=== PATIENT | male | born 1945 | race Caucasian/White ===

== ENCOUNTER 2016-03-24 08:13 | Outpatient (CLI) | payer MEDICARE, BC | END 2016-03-24 08:14 | disposition home or self-care (01) | DX: I50.9 Heart failure, unspecified (principal); I08.3 Combined rheumatic disorders of mitral, aortic and tricuspid valves ==

== ENCOUNTER 2016-04-07 10:52 | Outpatient (CLI) | payer MEDICARE, BC | END 2016-04-07 10:53 | disposition home or self-care (01) | DX: N18.6 End stage renal disease (principal); I51.7 Cardiomegaly ==

== ENCOUNTER 2017-01-18 16:51 | Outpatient (CLI) | payer MEDICARE, BC ==
--- NOTE | 2017-01-19 09:53 | Ultrasound Report ---
DUPLEX ULTRASOUND BILATERAL LOWER EXTREMITY ARTERIES: 01/18/2017 COMPARISON: None. INDICATION: Peripheral vascular disease. TECHNIQUE: Sonographic evaluation of the lower extremity arteries was performed. FINDINGS: No evidence of clinically significant stenosis throughout the exam. The following peak systolic velocities are measured in centimeters/second. RIGHT: UNDER WATER ASSISTANT: 112 SFA proximal: 77 SFA mid: 75 SFA distal: 82 PFA: 83 POP: 61 ANGELA: 64 HOTEL ATTENDANT: 49 Peroneal: 87 LEFT: UNDER WATER ASSISTANT: 114 SFA proximal: 56 SFA mid: 67 SFA distal: 83 PFA: 88 POP: 47 ANGELA: 43 HOTEL ATTENDANT: 88 Peroneal: 35 IMPRESSION: NO EVIDENCE OF CLINICALLY SIGNIFICANT STENOSIS. JOB #: [id number] EXT JOB #: [id number] [facility]
== END 2017-01-18 16:52 | disposition home or self-care (01) ==
LOC: DI 16:51
PROVIDERS: ATTEND Family Medicine
DX: I73.9 Peripheral vascular disease, unspecified (principal)
CPT/HCPCS: 93925

== ENCOUNTER 2017-01-23 16:24 | Outpatient (CLI) | payer MEDICARE, BC | END 2017-01-23 16:25 | disposition short-term general hospital (02) | LOC: EMS 16:24 | PROVIDERS: ATTEND Surgery | DX: R06.00 Dyspnea, unspecified (principal) | CPT/HCPCS: A0425; A0427 ==

== ENCOUNTER 2017-01-26 14:04 | Outpatient (CLI) | payer MEDICARE, BC | END 2017-01-26 14:05 | disposition critical access hospital (66) | LOC: EMS 14:04 | PROVIDERS: ATTEND Surgery | DX: R09.89 Other specified symptoms and signs involving the circulatory and respiratory systems (principal) | CPT/HCPCS: A0425; A0429 ==

== ENCOUNTER 2017-01-26 14:24 | Emergency (ER) | payer MEDICARE, BC ==
--- NOTE | 2017-01-26 15:26 | ED Physician Documentation ---
History of Present Illness - Stated complaint Stated Complaint: SOA - Chief complaint Chief Complaint: General - History obtained from History obtained from: Patient, Family (spouse) - History of Present Illness Timing: Today - Additonal information Additional information: The patient is a 71-year-old male with history of chronic renal failure, on dialysis, who presents after undergoing dialysis today. He was feeling dizzy, and was found to be hypotensive with a systolic pressure of 80 systolic 3 and half hours into his dialysis treatment, which was stopped 20 minutes short of completion. Dialysis staff also reports that his pulse oximetry was intermittently low, although the patient denies any associated shortness of breath. He denies chest pain, abdominal pain, nausea or vomiting. He denies cough or fever. 4 days ago he was hospitalized at [facility] in [place] with congestive heart failure and underwent aggressive dialysis for 2 days. He was given rest yesterday and discharged from the hospital, before resuming his routine dialysis today. Further past medical history is significant for cardiac arrest while undergoing dialysis 6 weeks ago. He subsequently underwent cardiac stent placement, and was started on metoprolol following that procedure. Review of Systems Constitutional: reports: Fatigue, Other (lightheadedness). denies: Fever Ears: denies: Tinnitus/ringing Nose: denies: Congestion Throat: denies: Sore throat Cardiac: denies: Chest pain / pressure, Palpitations Respiratory: denies: Dyspnea, Cough GI: denies: Abdominal Pain, Nausea, Vomiting : reports: Other (Chronic renal failure, on dialysis.). denies: Dysuria Skin: denies: Rash Musculoskeletal: denies: Back pain, Extremity pain Neurologic: denies: Focal weakness, Numbness, Headache PD PAST MEDICAL HISTORY - Past Medical History Past Medical History: Yes Cardiovascular: Congestive heart failure, Hypertension, Atrial fibrillation Respiratory: Pneumonia, Shortness of breath, Sleep apnea, CPAP use Endocrine/Autoimmune: HyPOthyroidism GI: None : Other HEENT: None Psych: None Musculoskeletal: Fatigue, Chronic back pain Derm: Other Other Past Medical History: Renal failure-Dialysis - Past Surgical History Past Surgical History: Yes HEENT: Cataracts - Present Medications Home Medications: Ambulatory Orders Medication Instructions Recorded Confirmed Levothyroxine [Synthroid] 125 meq PO DAILY 08/24/14 01/26/17 Warfarin [Coumadin] 2.5 mg PO DAILY 08/24/14 01/26/17 [id number] CD [Cardizem Cd] 180 mg PO DAILY 08/24/14 01/26/17 Lisinopril 5 mg PO 01/26/17 - Allergies Allergies/Adverse Reactions: Allergies Allergy/AdvReac Type Severity Reaction Status Date / Time latex Allergy Rash Verified 01/26/17 14:34 - Social History Does the pt smoke?: No Smoking Status: Never smoker Does the pt drink ETOH?: No Does the pt have substance abuse?: No - Immunizations Immunizations are current?: Yes - POLST Patient has POLST: Yes PD ED PE NORMAL - Vitals Vital signs reviewed: Yes (normal, with a blood pressure of 118/54.) - General General: Alert and oriented X 3, Well developed/nourished - HEENT HEENT: Atraumatic, Pharynx benign - Neck Neck: No adenopathy, No JVD - Cardiac Cardiac: RRR, Other (2/6 systolic murmur.) - Respiratory Respiratory: No respiratory distress, Clear bilaterally - Abdomen Abdomen: Soft, Non tender, Other (Rotund abdomen.) - Back Back: No CVA TTP - Derm Derm: No rash - Extremities Extremities: No calf tenderness / cord, Other (Brawny discoloration of his lower extremities bilaterally. Minimal pedal edema currently.) - Neuro Neuro: Alert and oriented X 3, No motor deficit, Normal speech Results - Vitals Vitals: Oxygen O2 Source Room air - EKG (time done) 14:35 Rate: Rate (enter#) (88) Rhythm: NSR Oakes: LAD Intervals: LBBB Compare to prior EKG: Changed from prior EKG (Compared to prior tracing of 2014, a-fib is no longer present. QRS morphology is unchanged.) Computer interpretation: Agree with computer PD MEDICAL DECISION MAKING - ED course Complexity details: reviewed old records, reviewed results, re-evaluated patient , considered differential, d/w patient, d/w family ED course: The patient's presentation is significant for history of hypotension occurring during renal dialysis. He is not hypotensive while in the emergency department , and is asymptomatic. His electrocardiogram reveals a left bundle branch block , which reveals no change in the QRS morphology when compared to prior electrocardiograms. He was observed in the emergency department for over one hour and remained asymptomatic. Prior to discharge he demonstrates ability to ambulate without lightheadedness. I discussed with him and his potentially worrisome signs or symptoms that should prompt reevaluation in the emergency department. Departure - Departure Disposition: 01 Home, Self Care Clinical Impression: Encounter for medical screening examination, History of hypotension, Chronic kidney disease with end stage renal failure on dialysis Condition: Stable Instructions: ED Hypotension All Causes Follow-Up: Domenic Dumont DO [Provider Admit Priv/Credential] - Comments: Continue medications as previously prescribed. Follow-up with primary physician as planned. Return to the emergency department if you develop increasing lightheadedness, dizziness, shortness of breath, chest pain, or otherwise worsening symptoms. Discharge Date/Time: 01/26/17 17:30
[2017-01-26 17:22] VITALS: BP 131/58
== END 2017-01-26 17:30 | disposition home or self-care (01) ==
LOC: EDUNIT# → ED 14:24
DX: I13.2 Hypertensive heart and chronic kidney disease with heart failure and with stage 5 chronic kidney disease, or end stage renal disease (principal); N18.6 End stage renal disease; I50.9 Heart failure, unspecified; Z99.2 Dependence on renal dialysis; I95.9 Hypotension, unspecified; I44.7 Left bundle-branch block, unspecified; R94.31 Abnormal electrocardiogram [ECG] [EKG]; I48.91 Unspecified atrial fibrillation; Z79.01 Long term (current) use of anticoagulants; G47.30 Sleep apnea, unspecified; E03.9 Hypothyroidism, unspecified
CPT/HCPCS: 80053; 83690; 84484; 85025; 93005; 99283; 99284

== ENCOUNTER 2017-01-31 03:17 | Outpatient (CLI) | payer MEDICARE, BC | END 2017-01-31 03:18 | disposition critical access hospital (66) | LOC: EMS 03:17 | PROVIDERS: ATTEND Surgery | DX: R06.02 Shortness of breath (principal); Z51.5 Encounter for palliative care; I50.9 Heart failure, unspecified; R09.02 Hypoxemia; N18.6 End stage renal disease | CPT/HCPCS: A0425; A0428; A0429 ==

== ENCOUNTER 2017-01-31 03:31 | Inpatient (IN) | payer MEDICARE, BC ==
--- NOTE | 2017-01-31 04:30 | XRAY Preliminary Report ---
Exam: XR CHEST 1 VIEW IMPRESSION: 1. Cardiomegaly with likely pulmonary edema or volume overload. Infiltrate not entirely excluded. [facility] SITE ID: [id number]
--- NOTE | 2017-01-31 04:32 | XRAY Report ---
EXAM: CHEST RADIOGRAPHY EXAM DATE: 01/31/2017 04:16 AM. CLINICAL HISTORY: Shortness of breath. COMPARISON: 04/07/2016. TECHNIQUE: 1 view. FINDINGS: Lungs/Pleura: Worsening bilateral pulmonary opacities likely representing pulmonary edema or volume o verload. Infiltrate not entirely excluded. No large pleural effusion seen. No pneumothorax. Mediastinum: Mild to moderate cardiomegaly. Aortic atherosclerosis. Other: None. IMPRESSION: 1. Cardiomegaly with likely pulmonary edema or volume overload. Infiltrate not entirely excluded. [facility] Referring Provider Line: [phone] SITE ID: [id number]
[2017-01-31] MEDS ORDERED: MORPHINE 2 MG/ML SYRINGE ONE (04:42)
[2017-01-31] MEDS ORDERED: LORazepam 2 MG/ML VIAL ONE (04:42)
[2017-01-31] MEDS ORDERED: LORazepam 2 MG/ML VIAL IM STA (04:44)
[2017-01-31] MEDS ORDERED: MORPHINE 10 MG/ML VIAL IM STA (04:44)
--- NOTE | 2017-01-31 04:46 | ED Physician Documentation ---
PD HPI DYSPNEA - Stated complaint Stated Complaint: SOA - Chief complaint Chief Complaint: Resp - History obtained from History obtained from: Patient, Family, EMS - History of Present Illness Timing - onset: Yesterday Timing - onset during: Rest Timing - duration: Hours Timing - details: Gradual onset, Still present Inciting event(s): Other (ESRD on dialysis with recent WI during dialysis with cardiac arrest) Improved by: O2, Rest, Sitting up Worsened by: Exertion, Laying flat Similar symptoms before: Diagnosis (pulmonary edema) Recently seen: Admitted - Additional information Additional information: 71-year-old male with a history of hypertension and end-stage renal disease on dialysis had cardiac arrest during dialysis in November. He had WI and 3 stents were placed. He has developed some congestive heart failure and one week ago today he was admitted into [facility] in [place] for complete congestive heart failure and he had dialysis 2 days in a row of a large volume of fluid taken off. He has gone on to have dialysis regularly on Monday and Monday. Yesterday he began to become withdrawn and his was concerned he may be getting sick again and through the evening he became more short of breath when medics arrived they found him to be hypoxic with oxygen saturation in the 80s and this easily corrected with nasal cannula oxygen. He was transported the hospital here with the thought that maybe he would be able to get oxygen for use at home. He is ready to have a conversation about hospice with Dr. Penn this morning. Review of Systems Constitutional: denies: Fever Eyes: denies: Decreased vision Ears: denies: Ear pain Nose: denies: Congestion Throat: denies: Sore throat Cardiac: denies: Chest pain / pressure, Palpitations Respiratory: reports: Dyspnea. denies: Cough GI: denies: Nausea, Vomiting : denies: Dysuria Skin: denies: Rash Musculoskeletal: denies: Back pain, Extremity pain Neurologic: reports: Generalized weakness, Altered mental status. denies: Numbness, Head injury PD PAST MEDICAL HISTORY - Past Medical History Past Medical History: Yes Cardiovascular: Congestive heart failure, Hypertension, Atrial fibrillation Respiratory: Pneumonia, Shortness of breath, Sleep apnea, CPAP use Neuro: None Endocrine/Autoimmune: HyPOthyroidism GI: None : Other HEENT: None Psych: None Musculoskeletal: Fatigue, Chronic back pain Derm: Other - Past Surgical History Past Surgical History: Yes HEENT: Cataracts - Present Medications Home Medications: Ambulatory Orders Medication Instructions Recorded Confirmed Levothyroxine [Synthroid] 125 meq PO DAILY 08/24/14 01/31/17 Warfarin [Coumadin] 2.5 mg PO DAILY 08/24/14 01/31/17 [id number] CD [Cardizem Cd] 180 mg PO DAILY 08/24/14 01/31/17 Lisinopril 5 mg PO DAILY 01/26/17 01/31/17 - Allergies Allergies/Adverse Reactions: Allergies Allergy/AdvReac Type Severity Reaction Status Date / Time latex Allergy Rash Verified 01/26/17 14:34 - Social History Does the pt smoke?: No Smoking Status: Never smoker Does the pt drink ETOH?: No Does the pt have substance abuse?: No - Immunizations Immunizations are current?: Yes - POLST Patient has POLST: Yes PD ED PE NORMAL - Vitals Vital signs reviewed: Yes (hypertensive and tachycardic ) - General General: Well developed/nourished - HEENT HEENT: Atraumatic, PERRL, EOMI - Neck Neck: Supple, no meningeal sign - Cardiac Cardiac: Other (tachy with 2/6 holosystolic murmer at LSB) - Respiratory Respiratory: Other (The patient is tachypneic and breath sounds are course) - Abdomen Abdomen: Soft, Non tender - Back Back: No CVA TTP, No spinal TTP - Derm Derm: Normal color, Warm and dry, No rash - Extremities Extremities: Other (bruany skin color to legs without pitting ) - Neuro Neuro: No motor deficit, No sensory deficit Eye Opening: Spontaneous Motor: Obeys Commands Verbal: Oriented GCS Score: 15 - Psych Psych: Normal mood, Normal affect Results - Vitals Vitals: Vital Signs - 24 hr 01/31/17 01/31/17 01/31/17 03:37 04:30 04:40 Temperature 36.0 C L Heart Rate 110 H 133 H 123 H Respiratory 28 H 36 H 30 H Rate Blood Pressure 106/44 L 174/105 H O2 Saturation 99 90 L 92 01/31/17 01/31/17 05:00 05:10 Temperature Heart Rate 109 H 115 H Respiratory 24 Rate Blood Pressure 146/89 H O2 Saturation 99 Oxygen O2 Source BIPAP Oxygen Flow Rate 15 - EKG (time done) 0341 Rate: Rate (enter#) (115) Rhythm: Sinus tachycardia Intervals: LBBB Compare to prior EKG: Changed from prior EKG (SPT 01-26-17 The rate has increased and LBBB has occurred. ) Computer interpretation: Agree with computer - Rads (name of study) 1 view chest Radiology: Prelim report reviewed (Impression: 1. Cardiomegaly with likely pulmonary edema or volume overload. Infiltrate not entirely excluded.), EMP read indepedently, See rad report Procedures - IVC sono (time) 0350 Bedside IVC sono: IVC measures (cm) (0.9), IVC collapsed c insp (cm) (complete) , Low CVP PD MEDICAL DECISION MAKING - ED course Complexity details: reviewed old records, reviewed results, re-evaluated patient , considered differential, d/w patient, d/w family, d/w clothing consultant ED course: 71-year-old male with history of hypertension and end-stage renal disease on dialysis has had a recent WI and a recent episode of congestive heart failure requiring urgent dialysis has now developed shortness of breath. He improved with O2 by nasal canula. His EKG showed a new LBBB with tachycardia and his CXR showed pulmonary edema. His vascular volume was low on interrogation of the IVC. He was hypertensive on arrival. He is DNR and appears close to this morning. I discussed his case with the heavy antiarmor weapons infantryman sharepoint application architect Dr. Sigala and he recommended transfer to [facility]. 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 The family is mostly interested in comfort measures and the patient is ready. Here in the ED he is placed on bipap, given IM ativan and IM morphine and an inch of nitro paste. We were unable to gain IV access and consulted anesthesia and this failed as well. Ultimately the family would like to allow nature to take its course. Dr. Thompson was consulted early in the case to assist with the management and decision making and came to the ED and will admit the patient for terminal comfort. Departure - Departure Disposition: 66 [facility] DC/Xfer Clinical Impression: Congestive heart failure, ESRD (end stage renal disease) on dialysis, Acute respiratory failure with hypoxia, Abnormal EKG Condition: Critical Discharge Date/Time: 01/31/17 06:10
[2017-01-31] MEDS ORDERED: NITROGLYCERIN 2% PASTE TOP STA (04:53)
[2017-01-31] MEDS ORDERED: NITROGLYCERIN 2% PASTE TOP ONE (05:00)
[2017-01-31] MEDS ORDERED: MORPHINE 2 MG/ML SYRINGE IM PRN (05:34)
[2017-01-31] MEDS ORDERED: ONDANSETRON ODT 4 MG TABLET TL PRN (05:34)
[2017-01-31] MEDS ORDERED: LORazepam 2 MG/ML VIAL IM PRN (05:34)
[2017-01-31] MEDS ORDERED: SODIUM CHLORIDE FLUSH 0.9% 10 ML SYRINGE IVP PRN (05:34)
[2017-01-31] MEDS ORDERED: ONDANSETRON 4 MG/2 ML VIAL IM PRN (05:34)
[2017-01-31] MEDS ORDERED: ATROPINE 1% OPHTH DROPS 2 ML SL PRN (05:34)
[2017-01-31] MEDS ORDERED: CARBOXYMETHYLCELLULOSE OPHTH DROPS EACHEYE PRN (05:34)
--- NOTE | 2017-01-31 05:44 | HISTORY & PHYSICAL EXAMINATION ---
Chief Complaint - Chief Complaint Chief Complaint: Shortness of breath History of Present Illness - Admitted From Admitted From:: Emergency Department - History Obtained From Records Reviewed: Yes History obtained from: Patients family Exam Limitations: Patient too short of breath and on BiPAP to provide history - History of Present Illness HPI Comment/Other: Patient is a 71-year-old gentleman with a past medical history significant for end-stage renal disease on hemodialysis Monday, , Monday, recent history of cardiac arrest during dialysis in November 2016, atrial fibrillation on Coumadin, hypertension, hypothyroidism, congestive heart failure, obesity and obstructive sleep apnea on CPAP at home who presented to the emergency department with a chief complaint of shortness of air. The patient is not able to provide history as he is too short of air to talk in complete sentences and was on BiPAP when I spoke with him. According to the patient's the patient has been deteriorating significantly since his cardiac arrest in November. She states that he has been having difficulties tolerating his dialysis sessions as he becomes hypotensive. She states that last week he had to be hospitalized for emergent dialysis when he became abruptly short of air prior to his Monday session. She states that after much discussion her and her were pursuing palliative care and hospice options. In fact she states that after this morning's dialysis session they wanted to set up hospice through the patient's commercial green building architect Dr. Penn. Before he could get to that dialysis session this morning the patient became acutely short of air. The patient's states that although the patient was saying that he felt fine throughout the day yesterday she could tell that he was not okay as he was talking very little. She states that since his dialysis session on Monday his weight is actually dropped. She states that this morning the patient became very short of air and could not breathe. He had no cough, no fevers or chills. He denied any chest pain. He did have significant orthopnea but had no increase in swelling. This happened very acutely and within an hour the ambulance was called and the patient was brought into the emergency department. The patient is unable to give much history but he does shake his head to having a headache, blurred vision, runny nose, sore throat, nasal congestion, chest pain, abdominal pain, nausea, vomiting, diarrhea, constipation, joint pain, muscle aches or any focal neurologic deficits When paramedics arrived at the patient's home the patient was saturating at 80% on room air and he was immediately placed on 2 L of oxygen. With oxygen the patient seemed to have significant improvement in his oxygen saturation and seemed to be stabilized. The initial thought of the was that the patient would just need to be set up with home oxygen and the patient was brought here to the emergency department at [facility]. Once the patient arrived he decompensated very quickly he became increasingly tachypneic and had significant respiratory distress and desaturated despite a 15 L nonrebreather down to the low 90s. Patient eventually needed to be placed on BiPAP. The patient also became tachycardic and very hypertensive. The patient underwent imaging with a chest x-ray which revealed cardiomegaly with pulmonary edema and fluid overload. The patient also had a EKG performed which showed new changes in the anterior leads concerning for ischemia. In the emergency room the nurses were unable to draw labs off of the patient is a could not find any veins. According to the family this has been a difficult thing for some time now. The emergency room physician called in the SWITCHBOARD OPERATOR magician/illusionist to try to put in a PICC line. After attempting to place a PICC line the SWITCHBOARD OPERATOR was unable to. We were unable to draw any labs. The emergency room physician spoke with the spent grain dryer at [facility] who stated that dialysis or any further treatment at this point would be futile. The intensivists at [facility] felt the patient likely had had a cardiac event and that being aggressive at this point would not improve the patient's state. After speaking with the patient's family they understood this and decided to admit the patient for comfort care measures only. The patient was given morphine in the emergency department along with Ativan. This seemed to really calm down the patient and made him much more comfortable. The patient was admitted on BiPAP for acute respiratory failure with hypoxia and will be made comfortable. History - Past Medical History Cardiovascular: reports: Congestive heart failure, Hypertension, Atrial fibrillation (On coumadin) Respiratory: reports: Pneumonia, Shortness of breath, Sleep apnea, CPAP use Neuro: reports: None Endocrine/Autoimmune: reports: HyPOthyroidism GI: reports: None : reports: Other (ESRD on HD) HEENT: reports: None Psych: reports: None Musculoskeletal: reports: Fatigue, Chronic back pain Derm: reports: Other MRSA Hx?: No - Past Surgical History HEENT: reports: Cataracts - Family & Social History Family History: Mother: , Father: Family History Comment/Other: No family history of renal disease. Positive family history for obesity and hypertension. 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 He has a son and a daughter. He does not smoke, drink alcohol or use any illicit drugs. - POLST Patient has POLST: Yes POLST Status: DNR Meds/Allgy - Home Medications Home Medications: Ambulatory Orders Medication Instructions Recorded Confirmed Levothyroxine [Synthroid] 125 meq PO DAILY 08/24/14 01/31/17 Warfarin [Coumadin] 2.5 mg PO DAILY 08/24/14 01/31/17 [id number] CD [Cardizem Cd] 180 mg PO DAILY 08/24/14 01/31/17 Lisinopril 5 mg PO DAILY 01/26/17 01/31/17 - Allergies Allergies/Adverse Reactions: Allergies Allergy/AdvReac Type Severity Reaction Status Date / Time latex Allergy Rash Verified 01/26/17 14:34 Review of Systems - Other Findings Other Findings: A comprehensive review of systems was performed the pertinent positives and negatives are stated above in the HPI and the remainder of the review of systems is negative. Exam - Vital Signs Reviewed Vital Signs: Yes Vital Signs: Vital Signs x48h Temp Pulse Resp BP Pulse Ox 01/31/17 05:10 115 H 01/31/17 05:00 109 H 24 146/89 H 99 01/31/17 04:40 123 H 30 H 174/105 H 92 01/31/17 04:30 133 H 36 H 90 L 01/31/17 03:37 36.0 C L 110 H 28 H 106/44 L 99 - Physical Exam General Appearance: positive: Alert, Severe distress (Patient has conversational dyspnea and is tachypneic with use of accessory muscles of breathing), Anxious Eyes Bilateral: positive: Normal inspection, PERRL, EOMI, No lid inflammation, Conjunctivae nml, No scleral icterus ENT: positive: ENT inspection nml, Pharynx nml, No signs of dehydration. negative: Purulent nasal drainage, Pharyngeal erythema, Oral lesions Neck: positive: Nml inspection, Thyroid nml, No JVD, Trachea midline. negative : Thyromegaly, Lymphadenopathy (R), Lymphadenopathy (L), Stiff neck, Carotid bruit, Tracheal deviation Respiratory: positive: Chest non-tender, Rales (Patient has bilateral crackles to the mid lungs), Other (Patient is using accessory muscles of breathing, tachypneic and in severe respiratory distress) Cardiovascular: positive: Irregularly irregular, Tachycardia, Systolic murmur Peripheral Pulses: positive: 2+ Abdomen: positive: Non-tender, No organomegaly, Nml bowel sounds, No distention. negative: Guarding, Rebound, Hepatomegaly Back: positive: Nml inspection. negative: CVA tenderness (R), CVA tenderness (L ) Skin: positive: Color nml, No rash, Other (Extremities are cool, Right arm fistula intact) Extremities: positive: Non-tender, Full ROM, Nml appearance, Pedal edema Neurologic/Psychiatric: positive: Oriented x3, CN's nml (2-12), Motor nml, Sensation nml Conclusion/Plan - Problem List (1) Acute respiratory failure with hypoxia Conclusion/Plan: Patient presented with acute respiratory failure with hypoxia. Initially was found to be saturating at 80% on room air at home. After arriving in the emergency department the patient had acute decompensation. Patient was requiring BiPAP to maintain his oxygen saturation and continued to be in respiratory distress. The patient also became tachycardic. The patient's EKG did show ST changes in the anteroseptal leads which were a major change from recent EKG 1 week earlier. We could not draw any labs on the patient secondary to inability to access any veins. The patient appeared to have crackles on examination and chest x-ray confirmed pulmonary edema. Patient was hypertensive on presentation and may have had an event of flash pulmonary edema or may have had a cardiac event causing pulmonary edema. Either way the spent grain dryer at [facility] did not feel that the patient would benefit from transfer or dialysis at this point he felt that treatment was futile and the correct management for this patient was hospice/palliative care. The patient's family was in agreement and decided to keep the patient here at [facility] for comfort care measures only. They did want to continue him on BiPAP and oxygen as needed. Plan: Patient will be placed on BiPAP and we will wean down oxygen as patient is able to tolerate it Patient will be placed on morphine sublingual and IM to keep him comfortable Patient will be placed on Ativan IM to help with anxiety Patient will not receive dialysis as we do not have dialysis available and it was felt that it was futile at this point from the spent grain dryer at [facility]. Palliative care consult (2) Abnormal EKG Conclusion/Plan: Patient had new changes on EKG from 1 week earlier. The patient did not have any chest pain but did have acute respiratory failure with hypoxia and pulmonary edema. The patient's EKG showed ST changes in the anteroseptal leads concerning for ischemia and new cardiac event. We were unable to get troponin secondary to inability to access the patient's vein. The patient and his family decided against doing any further workup and wanted the patient to be comfort measures only. They did want to continue with BiPAP for comfort. Patient will not undergo any further cardiac testing and we will not do any further medical management for possible DC. Patient will be managed as comfort care. (3) Hypertension Conclusion/Plan: Patient has history of hypertension according to the family the patient has been hypotensive during dialysis recently and has been had a difficult time tolerating dialysis. Today on presentation the patient is significantly hypertensive and did have pulmonary edema. Patient did get Nitropaste in the emergency department with which his blood pressure did improve. The patient's pulmonary edema and acute respiratory failure may have been secondary to flash pulmonary edema from severe hypertension however the spent grain dryer at [facility] felt that this was all likely due to a cardiac event and that treatment at this point for this patient would be futile especially given that the family was ready for hospice/palliative care. Patient will be admitted for comfort care measures and palliative care. Qualifiers: Hypertension type: essential hypertension Qualified Code(s): I10 - Essential (primary) hypertension (4) ESRD (end stage renal disease) on dialysis Conclusion/Plan: Patient has end-stage renal disease and is on hemodialysis. Patient has been on dialysis for the last 2-1/2 years. Most recently he has been deteriorating after a cardiac arrest in November. The patient has had a difficult time tolerating dialysis in the family was thinking that his next dialysis session would be his last of they wanted him to become hospice and palliative care. Unfortunately the patient is not going to be able to make it to his next dialysis session as he went into acute respiratory failure. The spent grain dryer at [facility] felt that doing further dialysis would be futile and there was too much of a risk that the patient may pass away before he ever gets to [facility] and suggested that the patient be made comfort care. The family was in agreement and the patient was made comfort care and admitted to our hospital here at [facility]. - Diagnostic Imaging Results Diagnostic Imaging Results: positive: Final report reviewed - EKG Results EKG Interpreted Independently: Yes EKG Comparison: Changed from prior EKG Issues/Core Measures - Anticipated LOS Anticipated Stay Length: 2 or more midnights - [facility] Requirement for [facility] I expect patient to be DC'd or transferred within 96 hours.: Yes - DVT/VTE - Prophylaxis Not Ordered - Patient Reason: Inconvenient
[2017-01-31] MEDS ORDERED: SODIUM CHLORIDE FLUSH 0.9% 10 ML SYRINGE IVP SCH (06:00)
[2017-01-31] MEDS ORDERED: PANTOPRAZOLE 40 MG VIAL IVP SCH (07:00)
[2017-01-31 07:48] VITALS: BP 123/71
[2017-01-31] MEDS: MORPHINE SOL 10 MG/0.5 ML SYRINGE SL PRN ×3 (08:10→11:44)
[2017-01-31] MEDS ORDERED: CHLORHEXIDINE GLUCONATE 15 ML UDC PO SCH (09:00)
[2017-01-31] MEDS ORDERED: LORazepam 0.5 MG TABLET PO PRN (10:20)
[2017-01-31] MEDS ORDERED: MORPHINE SOL 10 MG/0.5 ML SYRINGE PO ONE (12:15)
[2017-01-31] MEDS ORDERED: GLYCOPYRROLATE 1 MG/5 ML VIAL SUBQ PRN (12:25)
[2017-01-31] MEDS ORDERED: HALOPERIDOL 1 MG TABLET PO PRN (12:25)
[2017-01-31] MEDS ORDERED: MORPHINE 2 MG/ML SYRINGE IVP ONE (12:35)
[2017-01-31] MEDS ORDERED: MORPHINE SOL 10 MG/0.5 ML SYRINGE PO PRN ×2 (13:00→13:11)
[2017-01-31] MEDS ORDERED: SCOPOLAMINE PATCH TOP SCH (13:00)
[2017-01-31] MEDS ORDERED: fentaNYL 50 MCG PATCH TOP SCH (13:30)
--- NOTE | 2017-01-31 14:27 | Discharge Plan ---
Discharge Plan Disposition: 50 Hospice/Home DC/Xfer Condition: Critical Prescriptions: LORazepam [Lorazepam Intensol] 0.5 - 1 mg PO Q4H PRN #15 oral.conc PRN Reason: Anxiety Morphine Sulfate [Morphine Sulf Oral (Roxanol)] 20 - 30 mg PO Q1H PRN #120 ml PRN Reason: Pain/Dyspnea Diet: Regular Activity Restrictions: Activity as Tolerated Instruction Topics: Lorazepam oral solution, Morphine oral solution Follow-Up Care: Hospice No Smoking: If you smoke, Please STOP! Call for help. Follow-up with: Domenic Dumont DO [Primary Care Provider] -
--- NOTE | 2017-03-02 03:15 | DISCHARGE SUMMARY ---
DATE OF SERVICE: Physician: Noreen Blanco MD DATE OF ADMISSION: 01/31/2017 DATE OF DISCHARGE: 01/31/2017 This is a 71-year-old, white male with a past medical history of end-stage renal disease on dialysis 3 times a week, cardiac arrest during dialysis 2 months previously, chronic atrial fibrillation on Coumadin, history of hypertension, hypothyroidism, CHF, sleep apnea on CPAP. The patient presented to the emergency room after worsening shortness of breath , despite having dialysis. There had already been discussion about setting up hospice through the patient's securities sales associate, Dr. Penn. The patient was admitted for treatment of his shortness of breath and to initiate hospice for end of life, and discontinue dialysis. HOSPITAL COURSE AND DISCHARGE DIAGNOSES 1. Shortness of breath. This was felt to be due to congestive heart failure secondary to the recent cardiac arrest, as well as end-stage renal disease needing dialysis, now being stopped. The patient was seen by the hospice team and he was to be accepted in their care after discharge home. The patient was discharged home with new medications of lorazepam orally and morphine sulfate orally until hospice took over meds at home. 2. End-stage renal disease. Dialysis was now felt to be futile and none further was scheduled. 3. Congestive heart failure and history of cardiac arrest. No further medications were ordered. CONDITION AT DISCHARGE: Critical. EXAMINATION AT DISCHARGE VITAL SIGNS: Blood pressure 107/78, heart rate 80 and regular, respiratory rate 25-35, oxygen saturation 93% to 97% on 3 liters nasal cannula, which had been titrated down from 9 liters Oxymizer, to 5 liters, down to 3. HEENT: Oral mucosa dry. NECK: With positive JVD. CHEST: Diminished. Heart sounds distant. ABDOMEN: Soft. EXTREMITIES: Without edema. CODE STATUS: DNR. FOLLOWUP: No followup planned. The patient will be under hospice care for end- of-life care. TIME REQUIRED TO COMPLETE THIS ENTIRE DISCHARGE: 30 minutes. TD: 03/02/2017 04:13 WAN
== END 2017-01-31 17:00 | disposition home or self-care (01) | DRG 291 ==
LOC: EDUNIT# → ED 03:31 → SUPCPDRO 03:31 → ICU 05:35
PROVIDERS: ADMIT Internal Medicine; ATTEND Internal Medicine
DX: I13.2 Hypertensive heart and chronic kidney disease with heart failure and with stage 5 chronic kidney disease, or end stage renal disease (principal); J96.01 Acute respiratory failure with hypoxia; N18.6 End stage renal disease; Z68.41 Body mass index [BMI] 40.0-44.9, adult; I44.7 Left bundle-branch block, unspecified; I50.9 Heart failure, unspecified; G47.30 Sleep apnea, unspecified; I48.2 Chronic atrial fibrillation; E03.9 Hypothyroidism, unspecified; Z95.5 Presence of coronary angioplasty implant and graft; E66.9 Obesity, unspecified; Z87.01 Personal history of pneumonia (recurrent); G47.33 Obstructive sleep apnea (adult) (pediatric); Z66 Do not resuscitate; Z99.2 Dependence on renal dialysis; I25.2 Old myocardial infarction; Z79.1 Long term (current) use of non-steroidal anti-inflammatories (NSAID); Z79.01 Long term (current) use of anticoagulants
CPT/HCPCS: 71010; 80053; 83690; 83880; 84484; 85025; 85610; 87150; 93005; 96372; 99284; 99285

== ENCOUNTER 2017-01-31 17:09 | Outpatient (CLI) | payer MEDICARE, BC | END 2017-01-31 17:10 | disposition home or self-care (01) | LOC: EMS 17:09 | PROVIDERS: ATTEND Surgery | DX: Z51.5 Encounter for palliative care (principal); I50.9 Heart failure, unspecified; R09.02 Hypoxemia; N18.6 End stage renal disease ==

== ENCOUNTER 2017-02-01 05:39 | Outpatient (CLI) | payer MEDICARE, BC | END 2017-02-01 05:40 | disposition EMS.NT | LOC: EMS 05:39 | PROVIDERS: ATTEND Surgery ==